=== PATIENT | male | born 1995 | race Caucasian/White ===

== ENCOUNTER 2024-01-31 11:09 | Emergency (ER) | payer MEDICAID ==
[~2024-01-31] VITALS: Ht 182.9 cm; Wt 78.7 kg
[2024-01-31 11:17] VITALS: BP 115/69; PULSE 52; RESP 14; TEMP 97.4; O2SAT 100
== END 2024-01-31 13:09 | disposition home or self-care (01) ==
LOC: ER 11:09
DX: L42 Pityriasis rosea (principal)
CPT/HCPCS: 99282